=== PATIENT | female | born 1990 | race African-American/Black ===

== ENCOUNTER 2023-11-10 18:30 | Inpatient (IN) | payer OTHER ==
[2023-11-10 18:51] VITALS: BMI 22.1
[2023-11-10] MEDS ORDERED: chlordiazePOXIDE HCL 25 MG CAPSULE PO PRN (19:04)
[2023-11-10] MEDS ORDERED: BENZONATATE 200 MG CAPSULE PO PRN (19:05)
[2023-11-10] MEDS ORDERED: MAGNESIUM HYDROX 2400MG/30ML ORAL SUSPENSION 30 ML CUP PO PRN (19:05)
[2023-11-10] MEDS ORDERED: POLYETHYLENE GLYCOL (HEALTHYLAX) 3350 17 GM PACKET PO PRN (19:05)
[2023-11-10] MEDS ORDERED: DICYCLOMINE HCL 10 MG CAPSULE PO PRN (19:05)
[2023-11-10] MEDS ORDERED: BISMUTH SUBSALICYLATE 524 MG/30 ML PO PRN (19:05)
[2023-11-10] MEDS ORDERED: IBUPROFEN 600 MG TABLET (FP) PO PRN (19:05)
[2023-11-10] MEDS ORDERED: IBUPROFEN 400 MG TABLET (FP) PO PRN (19:05)
[2023-11-10] MEDS ORDERED: LOPERAMIDE HCL 2 MG CAPSULE PO PRN (19:05)
[2023-11-10] MEDS ORDERED: ACETAMINOPHEN 325 MG TABLET (FP) PO PRN (19:05)
[2023-11-10] MEDS ORDERED: MAG HYDROX/AL HYDROX/SIMETH 30 ML UNIT-DOSE CUP PO PRN (19:05)
[2023-11-10] MEDS ORDERED: guaiFENesin 600 MG TABLET.ER (FP) PO PRN (19:05)
[2023-11-10] MEDS ORDERED: BENZOCAINE/MENTHOL (CHLORASEPTIC ) LOZENGE MM PRN (19:05)
[2023-11-10] MEDS ORDERED: ONDANSETRON *ODT* 4 MG TABLET ONE (19:12)
[2023-11-10] MEDS ORDERED: chlordiazePOXIDE HCL 25 MG CAPSULE ONE ×2 (19:12→22:56)
[2023-11-10] MEDS: chlordiazePOXIDE HCL 25 MG CAPSULE PO ONE (19:16)
[2023-11-10] MEDS: ONDANSETRON *ODT* 4 MG TABLET SL PRN (19:21)
[2023-11-10] MEDS ORDERED: METOPROLOL TARTRATE 25 MG TABLET (FP) ONE (19:50)
[2023-11-10] MEDS: METOPROLOL TARTRATE 25 MG TABLET (FP) PO ONE ×2 (19:58→23:18)
[2023-11-10] MEDS ORDERED: TRIMETHOBENZAMIDE HCL 200MG/2ML INJ IM ONE (21:33)
[2023-11-10] MEDS: TRIMETHOBENZAMIDE HCL 200MG/2ML INJ IM ONE (21:46)
[2023-11-10] MEDS: chlordiazePOXIDE HCL 25 MG CAPSULE PO SCH (22:59)
[2023-11-10] MEDS ORDERED: cloNIDine HCL 0.1 MG TABLET ONE (23:11)
[2023-11-10] MEDS ORDERED: MELATONIN 5 MG TABLETS ONE (23:11)
[2023-11-11] MEDS: THIAMINE 100 MG TABLET PO SCH (00:11)
[2023-11-11] MEDS: MELATONIN 5 MG TABLETS PO SCH (00:11)
[2023-11-11] MEDS: PRENATAL VITAMINS W/ FOLIC ACID TABLET (FP) PO SCH (10:16)
[2023-11-11 10:25] LABS: HEMATOCRIT 39.5 % (32.4-45.2); HEMOGLOBIN 13.5 GM/dL (10.7-15.3); MCH 30.1 pg (25.7-33.7); MCHC 34.3 g/dl (32.0-36.0); MEAN CELL VOLUME 87.9 fl (80-96); MEAN PLT VOLUME 7.9 fl (7.5-11.1); PLATELET COUNT 129 10^3/uL (134-434); RDW 13.5 % (11.6-15.6); WHITE BLOOD COUNT 6.5 K/mm3 (4.0-10.0)
[2023-11-11 10:45] LABS: CHLORIDE 95 mmol/L (98-107); POTASSIUM 3.9 mmol/L (3.5-5.1); SODIUM 134 mmol/L (136-145)
[2023-11-11 11:02] LABS: ALBUMIN 4.5 g/dl (3.4-5.0); ANION GAP 11 mmol/L (4-13); BLOOD UREA NITROGEN 6.5 mg/dL (7-18); CO2 28 mmol/L (21-32); GLUCOSE,RANDOM 135 mg/dL (74-106)
[2023-11-11 11:05] LABS: CREATININE 0.9 mg/dL (0.55-1.3); SGOT/AST 80 U/L (15-37)
[2023-11-11 11:06] LABS: SGPT/ALT 50 U/L (13-61)
[2023-11-11 11:08] LABS: ALK PHOS 106 U/L (45-117); BILIRUBIN,TOTAL 0.8 mg/dL (0.2-1); TOT PROT 8.5 g/dl (6.4-8.2)
[2023-11-11] MEDS: METOPROLOL TARTRATE 25 MG TABLET (FP) PO ONE (13:49)
[2023-11-11] MEDS: LORazepam 1 MG TABLET PO PRN (15:15)
[2023-11-11] MEDS: LORazepam 2 MG TABLET PO SCH (17:05)
[2023-11-11] MEDS: METOPROLOL TARTRATE 50 MG TABLET (FP) PO ONE (17:05)
[2023-11-11] MEDS: GABAPENTIN 100 MG CAPSULE PO SCH (21:46)
[2023-11-11] MEDS: propRANOLol HCL 10 MG TABLET PO PRN (21:49)
[2023-11-12] MEDS ORDERED: chlordiazePOXIDE HCL 25 MG CAPSULE PO SCH (05:00)
[2023-11-12] MEDS: LORazepam 1 MG TABLET PO SCH (05:55)
[2023-11-12 09:34] VITALS: TEMP 97.7
[2023-11-12] MEDS: FLUoxetine HCL 10 MG CAPSULE PO SCH (10:23)
[2023-11-12 17:18] VITALS: PULSE 102; RESP 18
[2023-11-12 18:32] VITALS: BP 154/120
[2023-11-13] MEDS ORDERED: chlordiazePOXIDE HCL 10 MG CAPSULE PO PRN
[2023-11-13] MEDS ORDERED: LORazepam 0.5 MG TABLET PO SCH (05:00)
[2023-11-13] MEDS ORDERED: chlordiazePOXIDE HCL 10 MG CAPSULE PO SCH (05:00)
[2023-11-14] MEDS ORDERED: LORazepam 0.5 MG TABLET PO PRN
[2023-11-14] MEDS ORDERED: LORazepam 0.5 MG TABLET PO ONE (05:00)
[2023-11-14] MEDS ORDERED: chlordiazePOXIDE HCL 10 MG CAPSULE PO SCH (05:00)
[2023-11-15] MEDS ORDERED: chlordiazePOXIDE HCL 10 MG CAPSULE PO ONE (05:00)
== END 2023-11-12 17:55 | disposition left against medical advice (07) | DRG 770 ==
LOC: YASAS 18:30 → Y3N 21:22
PROVIDERS: ADMIT Allergy & Immunology; ATTEND Psychiatry & Neurology Pain Medicine
PROC: HZ2ZZZZ Detoxification Services for Substance Abuse Treatment (ICD-10-PCS; principal; 2023-11-10)
DX: F10.230 Alcohol dependence with withdrawal, uncomplicated (principal); F41.9 Anxiety disorder, unspecified; F41.1 Generalized anxiety disorder; F32.A Depression, unspecified; I10 Essential (primary) hypertension; R00.0 Tachycardia, unspecified; Z56.0 Unemployment, unspecified
CPT/HCPCS: 36415; 80053; 80305; 80307; 81025; 85027; 86780; 93005; 93010; Q0162